=== PATIENT | female | born 2000 | race American Indian/Alaskan Native ===

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

== ENCOUNTER 2022-04-28 12:19 | Emergency (ER) | payer OTHER ==
[2022-04-28] MEDS ORDERED: SODIUM CHLORIDE 0.9% 1000 ML 1,000 ML IV ONE (15:47)
[2022-04-28] MEDS ORDERED: KETOROLAC 30 MG/1 ML INJ IV ONE (15:48)
--- NOTE | 2022-04-28 15:49 | Emergency Department Report ---
ED Abdominal Pain HPI - General Chief Complaint: Back Pain/Injury Stated Complaint: ABD PAIN/BACK PAIN Source: EMS Mode of arrival: Ambulatory Limitations: No Limitations - History of Present Illness Initial Comments: 22-year-old female presents to the ED complaining of abdominal pain x2 days. Patient states that pain is a current 5 out of 10. Patient denies any dysuria, vaginal discharge,or vaginal bleeding at present time. Patient states that vomiting x1. States that she has a UTI in the past but did not complete the course of antibiotic. Patient is alert and oriented x3. No acute distress noted. no ill appearance noted. MD Complaint: abdominal pain Onset/Timin -: Gradual Location: R flank Radiation: none Migration to: no migration Severity scale (0 -10): 8 Quality: aching Consistency: intermittent Improves With: nothing Worsens With: nothing Associated Symptoms: vomiting - Related Data Previous Rx's Medication Instructions Recorded Last Taken Type Magnesium Citrate [Citrate of 300 ml PO ONCE PRN #1 bottle 09/15/19 Unknown Rx Magnesia] cephALEXin [Keflex] 500 mg PO BID 7 Days #14 cap 09/15/19 Unknown Rx Sulfamethoxazole/Trimethoprim 1 each PO BID 7 Days #14 tablet 10/26/19 Unknown Rx [Bactrim DS TAB] Dicyclomine [Bentyl] 20 mg PO QID 5 Days #20 tablet 04/28/22 Unknown Rx Ibuprofen [Motrin] 400 mg PO Q8H PRN 15 Days #30 04/28/22 Unknown Rx tablet Ondansetron (Nf) [Zofran TAB] 8 mg PO Q8HR PRN 3 Days #12 tablet 04/28/22 Unknown Rx Sulfamethoxazole/Trimethoprim 1 each PO BID 10 Days #20 tab 04/28/22 Unknown Rx [Bactrim DS TAB] Allergies Allergy/AdvReac Type Severity Reaction Status Date / Time No Known Allergies Allergy Verified 04/28/22 12:27 ED Review of Systems ROS: Stated complaint: ABD PAIN/BACK PAIN Other details as noted in HPI Constitutional: denies: chills, fever Eyes: denies: eye pain, eye discharge, vision change ENT: denies: ear pain, throat pain Respiratory: denies: cough, shortness of breath, wheezing Cardiovascular: denies: chest pain, palpitations Endocrine: no symptoms reported Gastrointestinal: denies: abdominal pain, nausea, diarrhea Genitourinary: denies: urgency, dysuria, discharge Musculoskeletal: denies: back pain, joint swelling, arthralgia Skin: denies: rash, lesions Neurological: denies: headache, weakness, paresthesias Psychiatric: denies: anxiety, depression Hematological/Lymphatic: denies: easy bleeding, easy bruising ED Past Medical Hx - Past Medical History Previous Medical History?: No - Surgical History Past Surgical History?: No - Social History Smoking Status: Never Smoker Substance Use Type: None - Medications Home Medications: Home Medications Medication Instructions Recorded Confirmed Last Taken Type Magnesium Citrate [Citrate of 300 ml PO ONCE PRN #1 bottle 09/15/19 Unknown Rx Magnesia] cephALEXin [Keflex] 500 mg PO BID 7 Days #14 cap 09/15/19 Unknown Rx Sulfamethoxazole/Trimethoprim 1 each PO BID 7 Days #14 tablet 10/26/19 Unknown Rx [Bactrim DS TAB] Dicyclomine [Bentyl] 20 mg PO QID 5 Days #20 tablet 04/28/22 Unknown Rx Ibuprofen [Motrin] 400 mg PO Q8H PRN 15 Days #30 04/28/22 Unknown Rx tablet Ondansetron (Nf) [Zofran TAB] 8 mg PO Q8HR PRN 3 Days #12 tablet 04/28/22 Unknown Rx Sulfamethoxazole/Trimethoprim 1 each PO BID 10 Days #20 tab 04/28/22 Unknown Rx [Bactrim DS TAB] ED Physical Exam - General Limitations: No Limitations General appearance: alert, in no apparent distress - Head Head exam: Present: atraumatic, normocephalic - Eye Eye exam: Present: normal appearance - ENT ENT exam: Present: mucous membranes moist - Neck Neck exam: Present: normal inspection - Respiratory Respiratory exam: Present: normal lung sounds bilaterally. Absent: respiratory distress - Cardiovascular Cardiovascular Exam: Present: regular rate, normal rhythm. Absent: systolic murmur, diastolic murmur, rubs, gallop - GI/Abdominal GI/Abdominal exam: Present: soft, normal bowel sounds - Extremities Exam Extremities exam: Present: normal inspection - Back Exam Back exam: Present: normal inspection - Neurological Exam Neurological exam: Present: alert, oriented X3 - Psychiatric Psychiatric exam: Present: normal affect, normal mood - Skin Skin exam: Present: warm, dry, intact, normal color. Absent: rash ED Course Vital Signs 04/28/22 12:25 Temperature 100.1 F H Pulse Rate 105 H Respiratory 18 Rate Blood Pressure 104/74 [Left] O2 Sat by Pulse 98 Oximetry ED Medical Decision Making - Lab Data Result diagrams: 04/28/22 15:55 04/28/22 15:55 - Medical Decision Making 22-year-old female presents to the ED complaining of abdominal pain x2 days. Patient states that pain is a current 5 out of 10. Patient denies any dysuria, vaginal discharge,or vaginal bleeding at present time. Patient states that v omiting x1. States that she has a UTI in the past but did not complete the course of antibiotic. Patient is alert and oriented x3. No acute distress noted. no ill appearance noted. Physical examination is unremarkable. Urinalysis analysis is significant for urinary tract infection dehydration. Patient is given normal saline x1 L, Toradol 30 mg IV. Rechecked the patient is resting quietly , comfortable and feeling better. I discussed the results of diagnostic study, my clinical impression and the plan for further treatment with the patient. Patient agrees with plan and discharge at this present time. All question addressed. I have given the patient instruction regarding a diagnosis ,expectation ,follow- up and return precaution. I explained to the patient that emergent condition may arise and to return to the ED for new worsen and any new persisting condition. I have explained the importance of following up with the primary care physician or referral physician listed below has instructed. The patient verbalized understanding of discharge instruction. Abnormal Lab Results 04/28/22 04/28/22 04/28/22 15:55 15:55 Unknown WBC 14.2 H RBC 4.87 Hgb 10.3 Hct 34.6 MCV 71 L MCH 21 L MCHC 30 RDW 18.1 H Plt Count 215 Sodium 135 L Potassium 4.2 Chloride 101.7 Carbon Dioxide 22 Anion Gap 16 BUN 12 Creatinine 1.0 Estimated GFR > 60 BUN/Creatinine Ratio 12 Glucose 89 Calcium 9.0 Total Bilirubin 1.70 H AST 18 ALT 15 Alkaline Phosphatase 100 Total Protein 7.0 Albumin 4.1 Albumin/Globulin Ratio 1.4 Lipase 8 L Urine Color Yellow Urine Turbidity Hazy Urine pH 6.0 Ur Specific [place] 1.015 Urine Protein 300 mg/dl Urine Glucose (UA) Negative Urine Ketones 40 Urine Blood Moderate A Urine Nitrite Negative Ur Reducing Substances Not Reportable Urine Bilirubin Negative Urine Ictotest Not Reportable Urine Urobilinogen < 2.0 Ur Leukocyte Esterase Moderate Urine WBC (Auto) 80.0 H Urine RBC (Auto) 56.0 U Epithel Cells (Auto) 35.0 H Urine Bacteria (Auto) 2+ Urine Mucus Few Urine HCG, Qual Negative Critical care attestation.: If time is entered above; I have spent that time in minutes in the direct care of this critically ill patient, excluding procedure time. ED Disposition Clinical Impression: Acute urinary tract infection Disposition: HOME / SELF CARE / HOMELESS Is pt being admited?: No Does the pt Need Aspirin: No Condition: Stable Instructions: Urinary Tract Infection, Adult, Antibiotic Medicine, Adult, [id number] Additional Instructions: Take medication as prescribed Return to the ED for any worsening symptom Prescriptions: Sulfamethoxazole/Trimethoprim [Bactrim DS TAB] 1 each PO BID 10 Days #20 tab Dicyclomine [Bentyl] 20 mg PO QID 5 Days #20 tablet Ibuprofen [Motrin] 400 mg PO Q8H PRN 15 Days #30 tablet PRN Reason: Fever >101 Ondansetron (Nf) [Zofran TAB] 8 mg PO Q8HR PRN 3 Days #12 tablet PRN Reason: Nausea And Vomiting Referrals: [facility] [Provider Group] - 3-5 Days Forms: Work/School Release Form(ED) Time of Disposition: 18:17
[2022-04-28 17:06] LABS: HCG Qualitative,Urine Negative (Negative)
[2022-04-28 17:08] LABS: Mean Corpuscular HGB Conc 30 % (30-34); Mean Corpuscular Volume 71 fl (79-97); Platelet Count 215 K/mm3 (140-440); Red Blood Count 4.87 M/mm3 (3.65-5.03); Red Cell Distribution Width 18.1 % (13.2-15.2)
[2022-04-28 17:10] LABS: Color,Urine Yellow (Yellow)
[2022-04-28 17:11] LABS: Bilirubin,Urine Negative (Negative)
[2022-04-28 17:12] LABS: Blood,Urine Moderate (Negative); Protein,Urine 300 mg/dL mg/dL (Negative); Urobilinogen,Urine < 2.0 mg/dL (<2.0)
[2022-04-28 17:13] LABS: Bacteria,Urine 2+ /HPF (Negative); Mucus,Urine FEW /HPF
[2022-04-28 17:14] LABS: Hematocrit 34.6 % (30.3-42.9); Hemoglobin 10.3 gm/dl (10.1-14.3)
[2022-04-28 17:21] LABS: Alanine Aminotransferase 15 units/L (7-56); Albumin 4.1 g/dL (3.9-5); BUN/Creatinine Ratio 12; Blood Urea Nitrogen 12 mg/dL (7-17); Hemolysis Index 0
[2022-04-28 19:13] VITALS: BP 121/90
== END 2022-04-28 19:10 | disposition home or self-care (01) ==
LOC: ED 12:19
DX: N39.0 Urinary tract infection, site not specified (principal)
CPT/HCPCS: 36415; 80053; 81001; 81025; 83690; 85027; 87076; 87086; 87186; 96361; 96374; 99284; J1885; J7030